=== PATIENT | female | born 1970 | race Caucasian/White ===

== ENCOUNTER 2017-10-21 21:53 | Emergency (ER) | payer BC ==
[2017-10-21 22:20] VITALS: BP 107/70; PULSE 72; RESP 18; TEMP 97
[2017-10-21] MEDS ORDERED: SULFAMETH-TMP DS STARTER PACK 2 TAB BTL PO STA (22:51)
[2017-10-21] MEDS ORDERED: CEPHALEXIN 500MG STARTER PACK 4 CAP BTL PO STA (22:51)
--- NOTE | 2017-10-21 22:52 | ED ---
Skin/Abscess/FB HPI - General Chief complaint: Skin/Abscess/Foreign Body Stated complaint: Leg laceration Time Seen by Provider: 10/21/17 22:11 Source: patient, RN notes reviewed, old records reviewed Mode of arrival: ambulatory Limitations: no limitations - History of Present Illness Initial comments: This is a 47 year old female with R ankle laceration that occured 3 days prior to ER visit. [place] and had a puncture wound from barbed wire near her. She states that her TDAP is up to date. She reports that she stopped bleeding quickly. She was concerned because she noticed pus and drainage from wound. She states that she has had some swelling into the ankle and foot. - Related Data Previous Rx's Medication Instructions Recorded Cephalexin [Keflex] 500 mg PO Q6HR #40 cap 10/21/17 Sulfamethox-Tmp 800-160Mg [Bactrim 2 tab PO Q12HR #40 tab 10/21/17 DS 800-160 mg] Allergies Allergy/AdvReac Type Severity Reaction Status Date / Time ciprofloxacin [From Cipro] Allergy Unknown Verified 10/21/17 22:20 metronidazole [From Flagyl] Allergy Unknown Verified 10/21/17 22:20 immurane Allergy Unknown Uncoded 10/21/17 22:20 Review of Systems ROS Statement: Those systems with pertinent positive or pertinent negative responses have been documented in the HPI. ROS Other: All systems not noted in ROS Statement are negative. Past Medical History Past Medical History: Cancer Additional Past Medical History / Comment(s): cervical cancer, non-hod lymphoma History of Any Multi-Drug Resistant Organisms: None Reported Past Surgical History: Back Surgery, Breast Surgery, Cholecystectomy Additional Past Surgical History / Comment(s): cervic Past Psychological History: Anxiety, Depression Smoking Status: Current every day smoker Past Alcohol Use History: None Reported Past Drug Use History: None Reported General Exam - General Exam Comments Initial Comments: Pleasant 47 year old female, no distress. Limitations: no limitations General appearance: alert, in no apparent distress Head exam: Present: atraumatic, normocephalic, normal inspection ENT exam: Present: normal exam, mucous membranes moist Neck exam: Present: normal inspection. Absent: tenderness, meningismus, lymphadenopathy Respiratory exam: Present: normal lung sounds bilaterally. Absent: respiratory distress, wheezes, rales, rhonchi, stridor Cardiovascular Exam: Present: regular rate, normal rhythm, normal heart sounds. Absent: systolic murmur, diastolic murmur, rubs, gallop, clicks GI/Abdominal exam: Present: soft, normal bowel sounds. Absent: distended, tenderness, guarding, rebound, rigid Extremities exam: Absent: normal inspection Right Lower Leg exam: Present: normal inspection, full ROM Ankle exam: Present: full ROM, erythema (erythema over ankle and swelling to dorsum of foot). Absent: normal inspection (2cm scabbed laceration over lateral aspect ove ankle. ) Foot/Toe exam: Present: swelling, erythema. Absent: normal inspection Neurovascular tendon exam: Present: no vascular compromise Gait: observed and normal 1 - 2cm scabbed laceration with underneath 4cm abscess. Back exam: Present: normal inspection Neurological exam: Present: alert, oriented X3, CN II-XII intact Psychiatric exam: Present: normal affect, normal mood Course Vital Signs 10/21/17 22:17 Temperature 97.0 F L Pulse Rate 72 Respiratory 18 Rate Blood Pressure 107/70 O2 Sat by Pulse 98 Oximetry Procedures - Incision & Drainage Site: lower extremity (R ankle) Size (cm): 4 Anesthetic Used: lidocaine 1% Amount (mLs): 3 I&D Cleaning Method: Iodine Sterile Field Used?: Yes Scalpel Used: #11 I&D Drainage Obtained: Pus, Blood Culture Obtained?: Yes Patient Tolerated Procedure: well, no complications Medical Decision Making - Medical Decision Making 47 year old female with laceration on R ankle 3 days ago, today she presents with drainage and swelling. Patient has surrounding abscess with swelling into foot. It is already draining. I did use 11 blade and reopen and remove more pus from abscess. Unable to pack due to location of abscess. Culture obtained. Will start on keflex and bactrim. Discussed close return parameters and PCP follow up. Discussed epsom salt soaks. Disposition Clinical Impression: Abscess of ankle Disposition: HOME SELF-CARE Condition: Good Instructions: Abscess (ED) Additional Instructions: and advised to follow-up with primary care physician. The area of redness or swelling worsens return to the emergency department. Take the antibiotic as prescribed. Do warm Epsom salt soaks of the area. Keep the area otherwise clean and dry and covered. Prescriptions: Cephalexin [Keflex] 500 mg PO Q6HR #40 cap Sulfamethox-Tmp 800-160Mg [Bactrim DS 800-160 mg] 2 tab PO Q12HR #40 tab Is patient prescribed a controlled substance at d/c from ED?: No Referrals: José Gross MD [Primary Care Provider] - 1-2 days Time of Disposition: 22:51
== END 2017-10-21 23:10 | disposition home or self-care (01) ==
LOC: EC 21:53
DX: L02.415 Cutaneous abscess of right lower limb (principal); S91.011A Laceration without foreign body, right ankle, initial encounter; F17.200 Nicotine dependence, unspecified, uncomplicated; Z85.72 Personal history of non-Hodgkin lymphomas; Z85.41 Personal history of malignant neoplasm of cervix uteri; Z88.1 Allergy status to other antibiotic agents; Z88.8 Allergy status to other drugs, medicaments and biological substances; W45.8XXA Other foreign body or object entering through skin, initial encounter; Y92.832 Beach as the place of occurrence of the external cause; Y93.01 Activity, walking, marching and hiking
CPT/HCPCS: 10060; 87070; 87077; 87186; 87205; 99283